=== PATIENT | female | born 1955 | race African-American/Black ===

== ENCOUNTER 2022-07-16 21:32 | Emergency (ER) | payer MEDICAID, OTHER ==
[~2022-07-16] VITALS: Ht 175.3 cm; Wt 73.0 kg
[2022-07-16 21:47] VITALS: BP 128/81
[2022-07-16 23:22] LABS: CLARITY URINE CLEAR (CLEAR); COLOR URINE YELLOW (YELLOW); KETONES URINE TRACE (NEGATIVE); LEUKOCYTE ESTERASE URINE 2+ (NEGATIVE); NITRITE URINE POSITIVE (NEGATIVE); OCCULT BLOOD URINE NEGATIVE (NEGATIVE); PH URINE 6.5 (4.5-8.0); PROTEIN URINE TRACE (NEGATIVE); SPECIFIC GRAVITY URINE 1.031 (1.005-1.030)
[2022-07-17] MEDS ORDERED: CLOT15CR27 TP (04:05)
[2022-07-17] MEDS ORDERED: CEPH500T MT (04:05)
== END 2022-07-17 04:37 | disposition home or self-care (01) ==
LOC: ER 21:32
DX: N39.0 Urinary tract infection, site not specified (principal); B37.9 Candidiasis, unspecified; Z90.711 Acquired absence of uterus with remaining cervical stump
CPT/HCPCS: 81003; 99283

== ENCOUNTER 2022-07-23 13:17 | Emergency (ER) | payer OTHER ==
[~2022-07-23] VITALS: Ht 175.3 cm; Wt 73.0 kg
[~2022-07-23 13:17] MED LIST: CEPH500T MT; CLOT15CR27 TP
[2022-07-23 13:50] LABS: CLARITY URINE CLOUDY (CLEAR); COLOR URINE YELLOW (YELLOW); KETONES URINE NEGATIVE (NEGATIVE); LEUKOCYTE ESTERASE URINE 3+ (NEGATIVE); NITRITE URINE NEGATIVE (NEGATIVE); OCCULT BLOOD URINE NEGATIVE (NEGATIVE); PROTEIN URINE TRACE (NEGATIVE); SPECIFIC GRAVITY URINE 1.023 (1.005-1.030)
[2022-07-23] MEDS ORDERED: METR-167 MT (16:09)
[2022-07-23 17:09] VITALS: BP 135/75
== END 2022-07-23 17:10 | disposition home or self-care (01) ==
LOC: ER 14:23
DX: A59.01 Trichomonal vulvovaginitis (principal); Z88.0 Allergy status to penicillin
CPT/HCPCS: 81003; 99283

== ENCOUNTER 2023-01-31 13:30 | Emergency (ER) | payer OTHER ==
[~2023-01-31] VITALS: Ht 175.3 cm; Wt 70.4 kg
[~2023-01-31 13:30] MED LIST changes: +METR-167 MT
[2023-01-31 14:05] VITALS: BP 133/71; PULSE 82; RESP 16; TEMP 98.7; O2SAT 99
[2023-01-31 16:05] LABS: CLARITY URINE CLOUDY (CLEAR); COLOR URINE DARK YELLOW (YELLOW); GLUCOSE URINE NEGATIVE (NEGATIVE); KETONES URINE TRACE (NEGATIVE); LEUKOCYTE ESTERASE URINE 2+ (NEGATIVE); NITRITE URINE POSITIVE (NEGATIVE); OCCULT BLOOD URINE 1+ (NEGATIVE); PH URINE 5.5 (4.5-8.0); PROTEIN URINE TRACE (NEGATIVE); SPECIFIC GRAVITY URINE 1.026 (1.005-1.030)
[2023-01-31 16:12] LABS: SQUAMOUS EPITHELIAL CELL URINE 1+ /lpf (RARE/1+); YEAST URINE NONE SEEN
[2023-01-31] MEDS ORDERED: CEFP200T13 MT (16:29)
[2023-01-31] MEDS ORDERED: DIPH25CA83 MT (16:29)
[2023-01-31 17:07] LABS: BACTERIA URINE 4+
== END 2023-01-31 17:05 | disposition home or self-care (01) ==
LOC: ER 13:30
DX: R30.0 Dysuria (principal)
CPT/HCPCS: 81003; 99283